=== PATIENT | male | born 1975 | race Caucasian/White ===

== ENCOUNTER 2017-05-09 11:41 | Emergency (ER) | payer MEDICAID ==
[~2017-05-09] VITALS: Ht 175.3 cm; Wt 78.9 kg
--- NOTE | 2017-05-09 11:55 | NUR ---
PATIENT TO CHAIR #C
[2017-05-09 11:58] VITALS: BP 162/118
--- NOTE | 2017-05-09 12:00 | NUR ---
PT C/O RIGHT ELBOW PAIN.HX HTN, PER PT HE TOOK IBUPROFEN YETERDAY, DID NOT RELIVE PAIN TOO MUCH. DENIES N/V/D; SKIN IS PINK/WARM/DRY; AAOX4 WITH EVEN AND STEADY GAIT; LUNGS CLEAR BL; HR EVEN AND REGULAR; PT DENIES ANY FEVER, CP, SOB, OR COUGH AT THIS TIME; PATIENT STATES PAIN OF 8/10 AT THIS TIME; VSS. ER MD MADE AWARE OF PT STATUS.
[2017-05-09] MEDS ORDERED: LIDOCAINE MPF 1% - **ER/OR** 5 ML ONE (12:22)
[2017-05-09] MEDS ORDERED: LIDOCAINE 1% 500 MG/50 ML VIAL INJ SCH (12:25)
[2017-05-09 13:34] VITALS: BP 132/81
--- NOTE | 2017-05-09 13:35 | NUR ---
Patient discharged with v/s stable. Written and verbal after care instructions given and explained. Patient alert, oriented and verbalized understanding of instructions. Ambulatory with steady gait. All questions addressed prior to discharge. ID band removed. Patient advised to follow up with PMD. Rx of keflex/naprosyn given. Patient educated on indication of medication including possible reaction and side effects. Opportunity to ask questions provided and answered.
== END 2017-05-09 13:35 | disposition home or self-care (01) ==
LOC: MED 11:41
DX: M70.31 Other bursitis of elbow, right elbow (principal); I10 Essential (primary) hypertension; F17.210 Nicotine dependence, cigarettes, uncomplicated; Y93.89 Activity, other specified
CPT/HCPCS: 10060; 99283; J2001

== ENCOUNTER 2020-08-31 02:11 | Emergency (ER) | payer MEDICAID, OTHER ==
[~2020-08-31] VITALS: Ht 175.3 cm; Wt 79.4 kg
[2020-08-31 02:11] VITALS: BP 120/81
[2020-08-31 02:35] VITALS: BP 120/81
== END 2020-08-31 02:35 | disposition home or self-care (01) ==
LOC: MED 02:11
DX: F10.129 Alcohol abuse with intoxication, unspecified (principal); R00.0 Tachycardia, unspecified; I10 Essential (primary) hypertension; Z02.89 Encounter for other administrative examinations; Y90.9 Presence of alcohol in blood, level not specified
CPT/HCPCS: 99283